=== PATIENT | male | born 1955 | race Caucasian/White ===

== ENCOUNTER → 2020-02-13 | Outpatient (CLI) | payer OTHER ==
[~2020-02-13] MED LIST: IOHEXOL 300 MG/ML 75 ML VIAL. IV ONE
--- NOTE | 2020-02-13 09:46 | RAD ---
EXAM: CT Neck with IV contrast INDICATION: Reason: CHRONIC SORE THROAT FOR 1 YEAR / Spl. Instructions: / History: TECHNIQUE: Multiple contiguous axial images were obtained of the neck with the use of IV contrast. Po st-processing reconstructed images were obtained for interpretation. All CT scans performed at this [facility] utilize dose optimization techniques as appropriate to the exam, including the following: Aut omated exposure control and adjustment of the mA and/or KV according to patient size (this includes t echniques or standardized protocols for targeted exams where dose is indication/reason for exam). IV CONTRAST: Administered COMPARISON: None FINDINGS: INTRACRANIAL STRUCTURES & ORBITS: Unremarkable. AERODIGESTIVE: The nasal cavity, nasopharynx, oral cavity, oropharynx, hypopharynx, larynx, and visu alized trachea and esophagus demonstrate no masses or abnormal enhancement. There is asymmetric soft tissue thickening in the right inferior nasal turbinate and scattered mucosal thickening is present i n the paranasal sinuses primarily in the bilateral ethmoid air cells. CERVICAL LYMPH NODES & SOFT TISSUES: No adenopathy, soft tissue mass, or fluid collection. THYROID & SALIVARY GLANDS: Unremarkable. LUNG APICES: Partially imaged groundglass opacity in the posterior inferior right upper lobe (axial image 99 of 99 on series 2) OSSEOUS: Minimal C-spine degenerative changes most conspicuous at C6-C7. IMPRESSION: 1. Asymmetric soft tissue thickening in the right inferior nasal turbinate and scattered mucosal thi ckening in the paranasal sinuses. Correlate clinically for any evidence of allergic rhinosinusitis. 2. Partially imaged groundglass opacity in the posterior inferior right upper lobe (axial image 99 o f 99 on series 2) is nonspecific and may represent an infectious or inflammatory process. Recommend f ollow-up CT chest within 3 months to further characterize and possibly document resolution. 3. Mild C-spine degenerative changes most conspicuous at C6-C7. 4. No specific cause for chronic throat pain is otherwise identified on CT. In particular, no upper aerodigestive tract masses are identified. Consider correlation with laryngoscopy as clinically appro priate. Electronically signed by: Gia Young MD (02/13/2020 9:44 AM) [id number]
== END ==
LOC: CT 07:43
PROVIDERS: ATTEND Otolaryngology
DX: R91.8 Other nonspecific abnormal finding of lung field (principal); M47.812 Spondylosis without myelopathy or radiculopathy, cervical region; J31.2 Chronic pharyngitis
CPT/HCPCS: 70491; Q9967

== ENCOUNTER → 2021-07-07 | Outpatient (CLI) | payer OTHER ==
[2021-07-07 14:56] LABS: CLARITY,URINE HAZY; COLOR,URINE YELLOW; GLUCOSE,URINE NEG (NEG)
[2021-07-07 14:57] LABS: BACTERIA,URINE FEW /HPF (0-FEW); NITRITE,URINE NEG (NEG); SQUAMOUS EPITHELIAL CELL,UR OCC /LPF; UROBILINOGEN,URINE 0.2 mg/dL (0.2 mg/dL); WBC,URINE >40 /HPF (0-4)
== END ==
LOC: LAB 13:24
PROVIDERS: ATTEND Urology
DX: R30.0 Dysuria (principal)
CPT/HCPCS: 81001; 87086